=== PATIENT | male | born 1955 | race Caucasian/White ===

== ENCOUNTER → 2018-08-01 10:41 | Outpatient (CLI) | payer OTHER, SELFPAY | PROVIDERS: Family Provider Internal Medicine; PCP Internal Medicine | DX: Z23 Encounter for immunization (principal) | CPT/HCPCS: 90471; 90686 ==

== ENCOUNTER 2018-10-10 06:21 | Day surgery (SDC) | payer OTHER, SELFPAY ==
--- NOTE | 2018-10-10 | PATH_ITS ---
[facility] Accession Number: [id number] . 01 Material submitted: . PART A: CECAL POLYP PART B: PROXIMAL RIGHT COLON POLYP PART C: HEPATIC FLEXURE POLYPS X3 PART D: COLON POLYP AT 50CM . 02 Diagnosis: A. Biopsy, Cecal Polyp: Tubular adenoma involving all three biopsy fragments. . B. Biopsy, Proximal Right Colon Polyp: Tubular adenoma. . C. Biopsy, Hepatic Flexure Polyps: Tubular adenoma involving three biopsy fragments. . D. Biopsy, Colon Polyp at 50 cm: Tubular adenoma. MRV/10/14/2018 . 02 Electronically signed: . Darien Garcia MD, Pathologist NPI- [id number] . 01 Gross description: . A. Received in formalin, labeled Tanner Ladd and 1. Cecal polyp, are three brown tissues averaging 0.3 x 0.3 x 0.2 cm. Submitted intact as A1. A1 is three pieces. B. Received in formalin, labeled Tanner Ladd and 2. Proximal right colon polyp, is one smiht tissue which is 0.2 x 0.2 x 0.1 cm. Submitted intact as B1. B1 is one piece. C. Received in formalin, labeled Tanner Ladd and 3. Hepatic flexure polyps, are multiple smith-yellow tissues aggregating to 0.6 x 0.2 x 0.2 cm. They are filtered and are entirely submitted as C1. C1 is multiple pieces. D. Received in formalin, labeled Tanner Ladd and 4. Colon polyp at 50 cm, is one smith tissue which is 0.4 x 0.3 x 0.2 cm. It is submitted intact as D1. D1 is one piece. ([id number]) /MRV . 02 Pathologist provided ICD-10: D12.0 . 02 CPT . 355094, 232325, 160023, [id number] Performed at: 01 [facility] [address] [address], [place], [place] [id number] MD Reza Flores MD Phone: [phone] Performed at: [address] [facility] [id number] [place], [place] [id number] MD Jessica Martino MD Phone: [phone]
[2018-10-10 07:07] VITALS: BP 109/70; PULSE 89; RESP 16; TEMP 36.2; O2SAT 94
[2018-10-10] MEDS: SODIUM CHLORIDE 0.9% 1,000 ML 200 ML IV (07:25)
--- NOTE | 2018-10-10 08:45 | PM.HP.1 ---
History of Present Illness Date Patient Seen: 10/10/18 Time Patient Seen: 08:45 Chief complaint: colonoscopy 48829 Narrative: Very pleasant and generally healthy 63-year-old gentleman who presents for screening colonoscopy. His last colonoscopy was 3 years ago here at our facility. He has a history of multiple small tubular adenomas. His last colonoscopy revealed a proximally 8 tiny lesions. He has no family history of colon cancer. He denies any new problems or symptoms related to the function of his GI tract. 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) Psoriasis (Chronic 07/03/11) Hypertension (Chronic 07/03/11) Acquired hypothyroidism (Chronic 07/03/11) Hyperlipidemia (Chronic 07/03/11) Hematuria (Inactive 07/03/11) History of renal calculi (Chronic 07/03/11) History of adenomatous polyp of colon (Chronic 08/19/12) Vision disorder (Chronic) Chicken pox (Resolved) Measles (Resolved) Mumps (Resolved) Surgical History Status post appendectomy (Inactive) Status post hernia repair (Inactive) Status post knee surgery (Inactive) Status post tonsillectomy and adenoidectomy (Inactive) Family & Social History Family History: Reviewed 10/10/18 by Anaya Crockett MD Social History: household members spouse Tobacco & Substance use: Smoking Status Former smoker Meds Home Medications Medication Instructions Recorded Confirmed Type ASPIRIN (#ASPIRIN) 81 mg PO Q DAY #0 07/03/11 03/29/18 History CALCIPOTRIENE (DOVONEX) 0.005 TP #0 07/03/11 03/29/18 History CHOLECALCIFEROL (VITAMIN D3) 2,000 iu PO #0 07/03/11 03/29/18 History (Vitamin D) Coenzyme Q10 (#COQ(10)10) 10 mg PO #0 07/03/11 03/29/18 History FOLIC ACID (#FOLIC ACID) 1 pow NA #0 07/03/11 03/29/18 History Fish Oil (#FISH OIL) 1 iu PO #0 07/03/11 03/29/18 History MULTIVITAMIN (One Daily 1 tab PO #0 07/03/11 03/29/18 History Multivitamin) [TUMERIC] #0 07/03/11 03/29/18 History levothyroxine 0.1 mg PO Q DAY #90 tab 09/17/17 10/10/18 Rx lisinopril 40 mg PO Q DAY #90 tab 09/17/17 10/10/18 Rx lovastatin 40 mg PO Q DAY #90 tab 09/17/17 10/10/18 Rx hydrochlorothiazide 25 mg PO QDAY #90 tab 09/28/17 10/10/18 Rx Allergies Allergy/AdvReac Type Severity Reaction Status Date / Time GREEN PEPPER Allergy Severe HIVES Uncoded 10/10/18 07:00 strawberries Allergy Severe hives Uncoded 10/10/18 07:00 Review of Systems Review of Systems All systems reviewed & are unremarkable except as noted in HPI and below Exam Vital Signs (past 8 hours): - 10/10/18 07:07 Temperature 97.1 F L Pulse Rate 89 Respiratory Rate 16 Blood Pressure 109/70 Pulse Oximetry 94 Oxygen Delivery Method Room Air Narrative Exam Narrative: Pleasant gentleman in no distress HEENT: Normocephalic and atraumatic, pupils equal round reactive to light accommodation with anicteric sclera Lungs: Clear to auscultation bilaterally Heart: Regular rate and rhythm Abdomen: Soft, nontender, active bowel sounds Extremities: Warm well perfused Assessment & Plan Plan: Assessment/Plan Narrative: Pleasant gentleman with a personal history of multiple tubular adenomas who presents for screening colonoscopy. We discussed the risks and benefits of the procedure the patient expressed a desire to complete it today
[2018-10-10] MEDS: fentaNYL 250 MCG/5 ML INJ IV (08:57)
[2018-10-10] MEDS: MIDAZOLAM 5 MG/5 ML VIAL IV (08:57)
[2018-10-10 09:26] VITALS: BP 106/64; PULSE 71; RESP 14; O2SAT 95
--- NOTE | 2018-10-10 09:26 | PM.OP.1 ---
Operative Date/Time/Diagnoses Date of procedure: 10/10/18 Time of procedure: 09:26 Pre-op diagnosis: Personal history of colon polyps Screening study Post-op diagnosis: same Procedure & Clinicians Procedure: Colonoscopy to the cecum with polypectomy times 8 Same procedure as scheduled: Yes Indications: Last colonoscopy 3 years ago with multiple polyps removed at that time Surgeon: Anaya Crockett Click Yes if Unassisted: Yes Anesthesia Type: Sedation (Versed 11 mg, fentanyl 300 mcg) Operative Notes Findings: 1. Excellent prep 2. 2-3 mm cecal polyp removed with cold forceps and submitted to pathology 3. 2 mm polyp in the proximal right colon-removed with cold forceps and submitted to pathology 4. Five 2-3 mm polyps at the hepatic flexure all removed with cold forceps and submitted to pathology 5. A single 3-4 mm polyp at 50 cm removed with cold forceps and submitted for pathology 6. Very mild diverticulosis limited the sigmoid region 7. Grade 1 internal hemorrhoids Closure Type: not applicable Estimated Blood Loss (mL): 2 Procedure in detail: After obtaining informed consent, the patient was brought to the GI suite and placed in the left lateral decubitus position on the examination table. After placement of appropriate monitors, the patient was given incremental doses of Versed and Fentanyl until an appropriate level of sedation was achieved. A time out was held per SCOAP protocol. A digital rectal examination was performed and did not reveal any masses or obstructing lesions. The colonoscope was gently passed into the patient's anus and the entire colon navigated to the level of the cecum with minimal difficulty. Once in the cecum, the scope was withdrawn being sure to go before and beyond all mucosal folds and prominences and get an excellent examination. The findings are noted above. At the level of the rectal vault, the scope was retroflexed and the internal anal canal was examined. The scope was straightened and air aspirated from the colon. The instrument was removed from the patient's body and the procedure was concluded. The patient was allowed to awaken from sedation without difficulty and taken to the post-anesthesia care unit in good condition. Total sedation time 36 min Total withdrawal time 23 min Complications: none Condition: stable Disposition: PACU Plan for aftercare: 1. Discharge to home 2. Plan for next colonoscopy in 1-3 years depending on pathology 3. We will contact you with pathology results and any additional recommendations
[2018-10-10 09:32] VITALS: BP 95/61; PULSE 72; RESP 12; O2SAT 93
[2018-10-10 09:36] VITALS: BP 95/63; PULSE 68; RESP 17; O2SAT 95
[2018-10-10 09:41] VITALS: BP 94/64; PULSE 67; RESP 13; O2SAT 93
== END 2018-10-10 10:20 | disposition home or self-care (01) ==
PROVIDERS: Family Provider Internal Medicine; PCP Internal Medicine; Visit Provider Surgery
PROC: 0DJD8ZZ Inspection of Lower Intestinal Tract, Via Natural or Artificial Opening Endoscopic (ICD-10-PCS; CPT 45378; principal; 2018-10-10 07:45)
DX: Z86.010 Personal history of colon polyps (principal); D12.0 Benign neoplasm of cecum; K57.30 Diverticulosis of large intestine without perforation or abscess without bleeding; K64.0 First degree hemorrhoids; K63.5 Polyp of colon; I10 Essential (primary) hypertension; E78.5 Hyperlipidemia, unspecified
CPT/HCPCS: 45380; 99152; 99153; J2250; J3010

== ENCOUNTER → 2019-06-30 15:34 | Outpatient (CLI) | payer OTHER, SELFPAY ==
--- NOTE | 2019-06-30 | DI.RAD.S_ITS ---
PROCEDURE: XR CERVICAL SPINE 2V OR 3V INDICATIONS: PSORIATIC ARTHRITIS TECHNIQUE: 3 view(s) of the cervical spine were acquired. COMPARISON: None. FINDINGS: Bones: No fractures or dislocations to the T1 level. The lateral masses of C1 appear intact on the odontoid view. No suspicious bony lesions. Note is made of a moderate to moderately severe degree of degenerative disc disease and facet osteoarthritis along the middle and lower thirds of the cervical spine, with prominent osteophytic spurring seen on the frontal projection greater on the left than the right at the facet joints through these areas. Soft tissues: No prevertebral soft tissue swelling. IMPRESSION: No trauma found, no spondyloarthropathy is seen. There is, however, relatively prominent degenerative disc disease and especially facet osteoarthritis greater on the left than the right over the middle and lower thirds of the cervical spine. Dictated by: Artemio Masterson M.D. on 06/30/2019 at 21:11 Approved by: Artemio Masterson M.D. on 06/30/2019 at 21:12
--- NOTE | 2019-06-30 | DI.RAD.S_ITS ---
PROCEDURE: XR CHEST 2V INDICATIONS: PSORIATIC ARTHRITIS TECHNIQUE: 2 views of the chest were acquired. COMPARISON: [facility], , CHEST 2 VIEW, 03/01/2007, 12:37. FINDINGS: Surgical changes and devices: None. Lungs and pleura: Lungs are clear. No pleural effusions or pneumothorax. Mediastinum: Mediastinal contours are normal. Heart size is normal. Bones and chest wall: No suspicious bony abnormalities. Soft tissues appear unremarkable. IMPRESSION: Normal for age, no communicated pneumonitis or interstitial fibrosis is found. Dictated by: Artemio Masterson M.D. on 06/30/2019 at 21:10 Approved by: Artemio Masterson M.D. on 06/30/2019 at 21:11
== END ==
PROVIDERS: Family Provider Physician Assistant; PCP Internal Medicine; Visit Provider Nurse Practitioner
DX: L40.50 Arthropathic psoriasis, unspecified (principal); M50.320 Other cervical disc degeneration, mid-cervical region, unspecified level; M47.812 Spondylosis without myelopathy or radiculopathy, cervical region
CPT/HCPCS: 71046; 72040

== ENCOUNTER → 2019-07-24 18:50 | Outpatient (CLI) | payer OTHER, SELFPAY | PROVIDERS: PCP Internal Medicine | DX: Z23 Encounter for immunization (principal) | CPT/HCPCS: 90471; 90686 ==

== ENCOUNTER → 2020-04-20 17:12 | Outpatient (CLI) | payer OTHER, SELFPAY ==
[2020-04-21 20:36] LABS: COVID19 Sendout Not Detected (Not Detect)
== END ==
PROVIDERS: PCP Internal Medicine; Visit Provider Physician Assistant
DX: Z03.818 Encounter for observation for suspected exposure to other biological agents ruled out (principal)
CPT/HCPCS: 87635

== ENCOUNTER → 2020-07-15 | Outpatient (CLI) | payer OTHER, SELFPAY | PROVIDERS: PCP Internal Medicine; Referring Provider Internal Medicine; Visit Provider Internal Medicine | DX: Z23 Encounter for immunization (principal) | CPT/HCPCS: 90471; 90686 ==

== ENCOUNTER → 2020-10-22 14:46 | Outpatient (CLI) | payer OTHER, SELFPAY ==
[2020-10-22] MEDS: COVID-19 VACC(MODERNA-1)/PF 100 MCG/0.5 ML VIAL IM (14:58)
== END ==
PROVIDERS: PCP Internal Medicine; Visit Provider Internal Medicine
DX: Z23 Encounter for immunization (principal)
CPT/HCPCS: 0011A; 91301

== ENCOUNTER → 2020-11-16 15:08 | Outpatient (CLI) | payer OTHER, SELFPAY ==
[2020-11-16] MEDS: COVID-19 VACC #2, MRNA(MOD) 100 MCG/0.5 ML VIAL IM (15:11)
== END ==
PROVIDERS: PCP Internal Medicine; Visit Provider Internal Medicine
DX: Z23 Encounter for immunization (principal)
CPT/HCPCS: 0012A; 91301